=== PATIENT | male | born 1995 | race African-American/Black ===

== ENCOUNTER 2017-10-01 22:37 | Emergency (ER) | payer OTHER ==
[~2017-10-01] VITALS: Ht 180.3 cm; Wt 54.7 kg
[~2017-10-01 22:37] MED LIST: ALLERGY10 M2 PO; ERYTHROMYCIN E3.5 G2 OPHTHALMIC
[2017-10-01] MEDS ORDERED: TYLENOL EXTRA500 MG PO (23:21)
[2017-10-02 00:14] VITALS: BP 132/68
== END 2017-10-02 00:20 | disposition home or self-care (01) ==
LOC: ER 22:37
DX: H04.302 Unspecified dacryocystitis of left lacrimal passage (principal); J45.909 Unspecified asthma, uncomplicated; F17.210 Nicotine dependence, cigarettes, uncomplicated; Z88.8 Allergy status to other drugs, medicaments and biological substances

== ENCOUNTER 2019-04-05 08:20 | Emergency (ER) | payer OTHER ==
[~2019-04-05] VITALS: Ht 175.3 cm; Wt 59.0 kg
[2019-04-05 08:20] VITALS: BP 116/73
[~2019-04-05 08:20] MED LIST changes: +TYLENOL EXTRA500 MG PO
[2019-04-05] MEDS ORDERED: PENICILLIN VK500 M1 PO (09:02)
[2019-04-05] MEDS ORDERED: TRAMADOL 50 MG50 MG PO (09:02)
[2019-04-05] MEDS ORDERED: PENICILLIN250 MG/51 PO (09:15)
== END 2019-04-05 09:21 | disposition home or self-care (01) ==
LOC: ER 08:20
DX: K04.7 Periapical abscess without sinus (principal); K02.9 Dental caries, unspecified; F17.210 Nicotine dependence, cigarettes, uncomplicated; J45.909 Unspecified asthma, uncomplicated; G61.0 Guillain-Barre syndrome; F12.90 Cannabis use, unspecified, uncomplicated; Z79.899 Other long term (current) drug therapy

== ENCOUNTER 2019-08-03 12:41 | Emergency (ER) | payer OTHER ==
[~2019-08-03] VITALS: Ht 182.9 cm; Wt 59.0 kg
[~2019-08-03 12:41] MED LIST changes: +PENICILLIN VK500 M1 PO; +PENICILLIN250 MG/51 PO; +TRAMADOL 50 MG50 MG PO
[2019-08-03 12:46] VITALS: BP 124/82
== END 2019-08-03 13:48 | disposition home or self-care (01) ==
LOC: ER 12:41
DX: R51 Headache (principal); J45.909 Unspecified asthma, uncomplicated; F17.210 Nicotine dependence, cigarettes, uncomplicated; Z91.048 Other nonmedicinal substance allergy status